=== PATIENT | female | born 1990 | race Caucasian/White ===

== ENCOUNTER 2019-05-24 13:50 | Inpatient (IN) | payer OTHER ==
[~2019-05-24 13:50] MED LIST: Bupivacaine 0.25% HCL 30 ML VIAL ONE; Bupivacaine PF 0.5% 30 ML VIAL ONE
[2019-05-25 00:44] VITALS: BMI 33.6
[2019-05-25] MEDS ORDERED: HYDROcodone/Acetaminophen 5/325 mg Tablet PO PRN ×2 (01:04)
[2019-05-25] MEDS ORDERED: Diphenoxylate HCl/Atropine Tablet PO PRN ×2 (01:04)
[2019-05-25] MEDS ORDERED: Lidocaine 1% (PF) 30 ML VIAL SC PRN (01:04)
[2019-05-25] MEDS ORDERED: Ondansetron PF 4 MG/2 ML Vial IVP PRN (01:04)
[2019-05-25] MEDS ORDERED: Butorphanol Tartrate 1 MG/ML VIAL SLOW IVP PRN (01:04)
[2019-05-25] MEDS ORDERED: Ibuprofen 800 MG TAB PO PRN (01:04)
[2019-05-25] MEDS ORDERED: Promethazine HCl 25 MG/ML VIAL IM PRN ×2 (01:04→12:12)
[2019-05-25] MEDS ORDERED: hydrALAZINE 20 MG/ML VIAL SLOW IVP PRN (01:04)
[2019-05-25] MEDS ORDERED: NS w/ Oxytocin 10 units 500 ML IV SCH (01:04)
[2019-05-25] MEDS ORDERED: Zolpidem Tartrate 5 MG TAB PO PRN (01:04)
[2019-05-25] MEDS ORDERED: Acetaminophen 500 MG TAB PO PRN (01:04)
[2019-05-25] MEDS ORDERED: NS / Oxytocin 40 units/1000ml 1,000 ML IV PRN (01:04)
[2019-05-25] MEDS ORDERED: Misoprostol 200 MCG TAB PR PRN (01:04)
[2019-05-25] MEDS ORDERED: Docusate 100 MG CAP PO PRN (01:04)
[2019-05-25 01:27] LABS: Hemoglobin 11.7 g/dL (12.0-16.0); Mean Corpuscular HGB CONC 35.3 g/dL (32.0-36.0); Mean Corpuscular Volume 93.3 fL (78.0-98.0); Mean Platelet Volume 7.9 fL (7.4-10.4); Platelet Count 234 thou/uL (130-400); RBC Distribution Width 11.8 % (11.5-14.5); Red Blood Cell (RBC) Count 3.54 mill/uL (4.20-5.40); White Blood Cell (WBC) Count 9.9 thou/uL (4.8-10.8)
[2019-05-25 02:04] LABS: HBSAg Index 0.21 S/CO (0-0.99); Hep B Surf Ag Non-Reactive S/CO (NonReactive)
[2019-05-25] MEDS: Misoprostol 100 MCG TAB VAG SCH (02:19)
[2019-05-25] MEDS: Lactated Ringer's 1,000 ML IV SCH ×2 (02:23→13:17)
[2019-05-25 04:25] LABS: Syphilis Antibody Nonreactive (Nonreactive); Syphilis Antibody Index 0.05 S/CO (<1.00 Non-Reactive)
[2019-05-25] MEDS: NS w/ Oxytocin 10 units 500 ML IV SCH (10:36)
[2019-05-25] MEDS ORDERED: Fentanyl 4 mcg/Bup 0.1% Cadd 100 ML ONE ×2 (10:44→18:59)
[2019-05-25] MEDS ORDERED: Lactated Ringer's 500 ML IV PRN (12:12)
[2019-05-25] MEDS ORDERED: diphenhydrAMINE 50 MG/ML VIAL IVP PRN (12:12)
[2019-05-25] MEDS ORDERED: EPHEDRINE 25 MG/5 ML SYRINGE SLOW IVP PRN (12:12)
[2019-05-25] MEDS ORDERED: Acetaminophen 325 MG TAB PO PRN (12:12)
[2019-05-25] MEDS ORDERED: Naloxone HCl 0.4 mg/ml Vial IVP PRN ×2 (12:12)
[2019-05-25] MEDS ORDERED: Communication Order-Pharmacy FS SCH (12:15)
[2019-05-25] MEDS ORDERED: Fentanyl 4 mcg/Bupivacaine 0.1% Cassette 100 ML EPIDURAL SCH (12:15)
[2019-05-25] MEDS: Ondansetron PF 4 MG/2 ML Vial IVP PRN (13:58)
[2019-05-25] MEDS ORDERED: Ampicillin 2 GM in Sodium Chloride 0.9% 100 ML IVPB SCH (23:59)
[2019-05-26] MEDS ORDERED: Fentanyl 4 mcg/Bup 0.1% Cadd 100 ML ONE (00:22)
[2019-05-26] MEDS: Lactated Ringer's 1,000 ML IV SCH ×2 (00:33→11:51)
[2019-05-26] MEDS ORDERED: Terbutaline Sulfate 1 MG/ML VIAL ONE (00:44)
[2019-05-26] MEDS ORDERED: Azithromycin 500 MG in Sodium Chloride 0.9% 250 ML 250 ML IVPB SCH (00:45)
[2019-05-26] MEDS ORDERED: Oxytocin 10 UNITS/ML VIAL ONE (00:48)
[2019-05-26] MEDS ORDERED: MORPHINE 5 MG/10 ML PF VIAL ONE (00:49)
[2019-05-26] MEDS ORDERED: Ondansetron PF 4 MG/2 ML Vial ONE ×2 (00:49→01:02)
[2019-05-26] MEDS ORDERED: EPHEDRINE 25 MG/5 ML SYRINGE ONE (01:02)
[2019-05-26] MEDS ORDERED: PHENYLEPHRINE-NS 100 MCG/ML 10 ML SYRINGE ONE (01:02)
[2019-05-26] MEDS ORDERED: HYDROmorphone 2 MG/ML VIAL SLOW IVP PRN (01:03)
[2019-05-26] MEDS ORDERED: Promethazine HCl 25 MG/ML VIAL IM PRN (01:03)
[2019-05-26] MEDS ORDERED: diphenhydrAMINE 50 MG/ML VIAL IVP PRN (01:03)
[2019-05-26] MEDS ORDERED: Ketorolac Tromethamine 30 MG/ML VIAL IVP PRN (01:03)
[2019-05-26] MEDS ORDERED: L&D-Morphine 4 MG/ML VIAL SLOW IVP PRN (01:03)
[2019-05-26] MEDS ORDERED: Ondansetron PF 4 MG/2 ML Vial IVP PRN ×2 (01:03→01:55)
[2019-05-26] MEDS ORDERED: Ondansetron HCl/PF 4 MG/2 ML Vial IVP PRN (01:03)
[2019-05-26] MEDS ORDERED: Naloxone HCl 0.4 mg/ml Vial IVP PRN ×2 (01:03)
[2019-05-26] MEDS ORDERED: Promethazine HCl 25 MG SUPP PR PRN (01:03)
[2019-05-26] MEDS ORDERED: Meperidine HCl/PF 25 MG/ML VIAL SLOW IVP PRN (01:03)
[2019-05-26] MEDS ORDERED: Naloxone HCl 0.4 mg/ml Vial IV PRN (01:03)
[2019-05-26] MEDS ORDERED: Ketorolac Tromethamine 30 MG/ML VIAL IVP SCH (01:15)
[2019-05-26] MEDS ORDERED: Communication Order-Pharmacy FS SCH (01:15)
[2019-05-26] MEDS ORDERED: Zolpidem Tartrate 5 MG TAB PO PRN (01:55)
[2019-05-26] MEDS ORDERED: Bisacodyl 10 MG SUPP PR PRN (01:55)
[2019-05-26] MEDS ORDERED: diphenhydrAMINE 25 MG CAP PO PRN (01:55)
[2019-05-26] MEDS ORDERED: Acetaminophen 325 MG TAB PO PRN (01:55)
[2019-05-26] MEDS ORDERED: Adacel (T-DAP) 0.5 ML SYRINGE IM ONE (01:55)
[2019-05-26] MEDS ORDERED: Meperidine HCl/PF 25 MG/ML VIAL IM PRN (01:55)
[2019-05-26] MEDS ORDERED: Misoprostol 200 MCG TAB PR PRN (01:55)
[2019-05-26] MEDS ORDERED: hydrALAZINE 20 MG/ML VIAL SLOW IVP PRN (01:55)
[2019-05-26] MEDS ORDERED: Simethicone Chewable 80 MG TAB PO PRN (01:55)
[2019-05-26] MEDS ORDERED: Lanolin Ointment 7 GM TUBE TOP PRN (01:55)
[2019-05-26] MEDS ORDERED: NS / Oxytocin 40 units/1000ml 1,000 ML IV SCH (02:00)
[2019-05-26] MEDS: HYDROcodone/Acetaminophen 5/325 mg Tablet PO PRN ×2 (05:54→15:21)
[2019-05-26] MEDS: Ibuprofen 800 MG TAB PO SCH ×3 (05:55→21:25)
[2019-05-26] MEDS: Ampicillin/Sulbactam 3 GM in Sodium Chloride 0.9% 100 ML IVPB SCH ×2 (06:23→14:10)
[2019-05-26] MEDS: Ferrous Sulfate 325 MG TAB PO SCH ×2 (10:21→21:25)
[2019-05-26] MEDS: Docusate Calcium (SURFAK) 240 MG CAP PO SCH ×2 (10:21→21:25)
[2019-05-26] MEDS: Ondansetron PF 4 MG/2 ML Vial IVP PRN (11:43)
[2019-05-26] MEDS: NS w/ Oxytocin 10 units 500 ML IV SCH (11:52)
[2019-05-26] MEDS: Misoprostol 100 MCG TAB VAG SCH ×2 (11:52→11:53)
[2019-05-26] MEDS: Prenatal Vitamin 1 TAB PO SCH (14:16)
[2019-05-27] MEDS: HYDROcodone/Acetaminophen 5/325 mg Tablet PO PRN ×5 (00:27→21:50)
[2019-05-27] MEDS: Ibuprofen 800 MG TAB PO SCH ×3 (06:09→21:52)
[2019-05-27 06:15] LABS: Hemoglobin 9.2 g/dL (12.0-16.0); Mean Corpuscular HGB CONC 32.5 g/dL (32.0-36.0); Mean Corpuscular Hemoglobin 31.5 pg (27.0-31.0); Mean Corpuscular Volume 97.1 fL (78.0-98.0); Mean Platelet Volume 7.9 fL (7.4-10.4); Platelet Count 179 thou/uL (130-400); RBC Distribution Width 12.2 % (11.5-14.5); Red Blood Cell (RBC) Count 2.92 mill/uL (4.20-5.40)
[2019-05-27] MEDS: Prenatal Vitamin 1 TAB PO SCH (09:11)
[2019-05-27] MEDS: Docusate Calcium (SURFAK) 240 MG CAP PO SCH ×2 (09:11→21:52)
[2019-05-27] MEDS: Ferrous Sulfate 325 MG TAB PO SCH ×2 (09:11→21:52)
--- NOTE | 2019-05-27 16:23 | OP ---
DATE OF PROCEDURE: 05/26/2019 ATTENDING STAFF PHYSICIAN: Jackie Talbot MD RESIDENT SURGEON: Liliam Cornejo DO PREOPERATIVE DIAGNOSES: 1. Term intrauterine at 39 and 2/7th weeks. 2. Failed induction. 3. Failure to progress. 4. Arrest of descent dilatation. 5. Nonreassuring heart rate tracing. POSTOPERATIVE DIAGNOSES: 1. Term intrauterine at 39 and 2/7th weeks. 2. Failed induction. 3. Failure to progress. 4. Arrest of descent dilatation. 5. Nonreassuring heart rate tracing. 6. Cephalopelvic disproportion. PROCEDURE PERFORMED: Primary low-transverse section. ANESTHESIA: Spinal catheterization. FINDINGS: 1. Arrest of descent at +1 station. 2. Nonreassuring heart rate tracing with decreased wohj-fi-xqrk variability and subtle late decelerations. 3. True knot in the cord. 4. Viable male , 7 pounds 6 ounces, Apgars 8 and 8. 5. Normal uterus, tubes, and ovaries. COMPLICATIONS: Benign. SPECIMENS REMOVED: Cord blood gases. BLOOD LOSS: 600 mL. HISTORY AND INDICATIONS: Ms. Nany Escalante is a very pleasant 28-year-old white female G1, P0, who was followed in my clinic at [facility] [employer] for obstetric care. She conceived via in vitro fertilization. Her was essentially uncomplicated. We scheduled her for induction at 39+ weeks secondary to her IVF . She presented to Labor and Delivery on the evening of 05/24/2019, for cervical ripening. Her induction was delayed. She received her first Cytotec at 0215 hours in the morning. She received a total of two doses of Cytotec early on the morning of 05/25/2019. AROM was performed that morning at approximately 1030 hours. Her cervix at that time was 2 cm dilated, 70% effaced, and -3 station. Fluid was clear. Her labor slowly progressed throughout the afternoon and the evening of 05/25/2019. Early on the morning of 05/26/2019 as the patient had progressed to complete dilation and was pushing, the baby began to show some signs of distress. The heart rate tracing became category 3 with decreased puih-qy-szbr variability and subtle late decelerations. The patient had no descent past +1 station after pushing for 2 hours. The family was appraised of the clinical situation and decision was made to proceed with primary low-transverse section secondary to arrest and a nonreassuring heart rate tracing. Surgical disclosures were signed and placed in the chart. Questions were answered to the patient and family satisfaction. DESCRIPTION OF PROCEDURE: After thorough consent and counseling, Ms. Escalante was taken to operating room and an adequate level of anesthesia was obtained by her existing epidural. The patient was prepped and draped in usual sterile fashion for abdominal surgery. A Aguilar had previously been placed in the bladder, which was noted to be draining clear urine. A team time-out was performed per protocol. Attention was then turned to performing the primary low-transverse section. A Pfannenstiel incision was made, carried sharply to the fascia, which was also sharply incised. The midline was identified. The rectus muscles were retracted laterally. The abdominal peritoneal cavity was entered with usual safeguards carried out. A retractor was placed and a bladder flap was created on the vesicouterine peritoneum. A bladder blade was then placed. A low-transverse incision was made on the very well-developed lower uterine segment. Upon entering the amniotic sac, copious amount of clear amniotic fluid was visualized. The was noted to be vertex presentation in the occiput transverse position still high in the pelvis. Head was delivered. Baby was bulb suctioned on the abdomen. Nuchal cord x1 was easily reduced. There was also a loop of cord around the baby's right shoulder. After the head was delivered, shoulders and body were then delivered in atraumatic fashion. A tight true knot in the cord was noted. There was very little blood distal to the knot. The cord was doubly clamped and cut and the was handed to the neonatology team in attendance for the delivery. The was a viable male weighing 7 pounds 6 ounces with Apgars of 8 and 8 obtained at one and five minutes respectively. Cord blood gases were obtained. The placenta was manually removed from the uterus. A true knot in the cord was observed and confirmed by my inventory assistant and the greenhouse technician, as well as the circulating nurse. The uterus was exteriorized. Poor tone was initially noted. Vigorous uterine massage was performed. The low-transverse incision was then closed with a running locking ligature of #1 chromic. A second imbricating layer was placed to facilitate strength and hemostasis. The vesicouterine peritoneum was reapproximated to the lower segment with a running ligature of 2-0 Monocryl suture. Good tone and hemostasis were then appreciated. The uterus, fallopian tubes, and ovaries were normal. No pathology was identified. The posterior cul-de-sac and gutters were cleared of clot and fluid. The pelvis was carefully inspected. The inferior part of the sacrum was extremely prominent. 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 She was also noted to have an appreciable narrow outlet throughout the labor process. A diagnosis of cephalopelvic disproportion was given. All surgical sites were inspected and noted to be hemostatic. The peritoneum was then closed with a running ligature of 2-0 Vicryl. Lap, sponge, needle counts were correct. The rectus muscles were reapproximated midline. The fascia was closed with two ligatures of 0 Vicryl suture, which were tied in the midline. Good fascial integrity was appreciated. The incision was irrigated with copious amount of warm normal saline. The subcutaneous tissue was closed with interrupted ligatures of 2-0 plain. The skin was closed with subcuticular stitch of 4-0 Monocryl and dressed with Dermabond. Lap, sponge, and needle counts were correct x3. Estimated blood loss for the surgical procedure was approximately 600 mL. Team debriefing was performed. The patient was then awakened and taken to the recovery room in good condition. Immediately following surgery, the patient and family were made aware of the surgical procedure and operative findings. We discussed in detail the findings of the nuchal cord as well as a true knot cord, which certainly could be causing the FHRA. We also discussed the findings of cephalopelvic disproportion and the implications for future deliveries. Questions were answered to the patient and family satisfaction. Mother and baby were doing well postoperatively. The baby was returned to mother in the recovery room for skin to skin contact and . The patient and her were very appreciative of the care rendered here at [facility] this morning. Job ID: [id number]
[2019-05-28] MEDS: Ibuprofen 800 MG TAB PO SCH (04:06)
[2019-05-28] MEDS: HYDROcodone/Acetaminophen 5/325 mg Tablet PO PRN ×2 (06:34→10:37)
[2019-05-28 08:35] VITALS: BP 121/77; TEMP 98.5
[2019-05-28] MEDS: Docusate Calcium (SURFAK) 240 MG CAP PO SCH (09:02)
[2019-05-28] MEDS: Prenatal Vitamin 1 TAB PO SCH (09:02)
[2019-05-28] MEDS: Ferrous Sulfate 325 MG TAB PO SCH (09:03)
== END 2019-05-28 13:36 | disposition home or self-care (01) | DRG 787 ==
LOC: UNDOADMIN 23:16 → L&D 23:16 → 3SE 05-26 11:37
PROVIDERS: ADMIT Obstetrics & Gynecology; ATTEND Obstetrics & Gynecology
PROC: 10D00Z1 Extraction of Products of Conception, Low, Open Approach (ICD-10-PCS; principal; 2019-05-26)
DX: O76 Abnormality in fetal heart rate and rhythm complicating labor and delivery (principal); D62 Acute posthemorrhagic anemia; Z3A.39 39 weeks gestation of pregnancy; Z37.0 Single live birth; O33.9 Maternal care for disproportion, unspecified; O62.1 Secondary uterine inertia; O61.9 Failed induction of labor, unspecified; O99.02 Anemia complicating childbirth
CPT/HCPCS: 36415; 51702; 85027; 86780; 86850; 86900; 86901; 87340; 88307; J0290; J0295; J0456; J2274; J2405; J2550; J2590; J3105; J3490; J7050; S0020